=== PATIENT | male | born 1960 | race Two or more races ===

== ENCOUNTER 2023-12-22 12:21 | Emergency (ER) | payer OTHER ==
[~2023-12-22] VITALS: Ht 172.7 cm; Wt 83.9 kg
[2023-12-22] MEDS ORDERED: HYDROCHLOROTHIA25 MG (12:32)
[2023-12-22] MEDS ORDERED: AZOR 5-40 MG T1 EACH (12:32)
[2023-12-22] MEDS ORDERED: ZESTRIL10 M1 (12:32)
[2023-12-22] MEDS ORDERED: ROSUVASTATIN CA10 MG (12:33)
[2023-12-22] MEDS ORDERED: LYRICA20 MG/1 ML (12:34)
[2023-12-22] MEDS ORDERED: SERTRALINE20 MG/1 ML (12:34)
[2023-12-22] MEDS ORDERED: LIDOCAINE HCL 1% 10ML VIAL PERCUT ONE (13:00)
[2023-12-22] MEDS ORDERED: CEFTRIAXONE SODIUM 1,000 MG VIAL IM ONE (13:00)
[2023-12-22] MEDS ORDERED: KETOROLAC TROMETHAMINE 60 MG VIAL IM ONE (13:00)
[2023-12-22] MEDS ORDERED: TETANUS & DIPHTHERIA TOX,ADULT 0.5 ML VIAL IM ONE (13:00)
[2023-12-22] MEDS ORDERED: PEPCID AC20 MG PO (13:35)
[2023-12-22] MEDS ORDERED: CEPHALEXIN750 MG PO (13:35)
== END 2023-12-22 15:08 | disposition home or self-care (01) ==
LOC: ER 12:23
DX: S81.021A Laceration with foreign body, right knee, initial encounter (principal); W18.39XA Other fall on same level, initial encounter; Y93.89 Activity, other specified; Y92.89 Other specified places as the place of occurrence of the external cause; Z88.8 Allergy status to other drugs, medicaments and biological substances; E78.00 Pure hypercholesterolemia, unspecified; I10 Essential (primary) hypertension; E11.9 Type 2 diabetes mellitus without complications